=== PATIENT | female | born 1985 | race Caucasian/White ===

== ENCOUNTER 2017-02-27 05:54 | Inpatient (IN) ==
--- NOTE | 2017-02-27 06:35 | OB/GYN History & Physical ---
Date of Encounter: 02/27/17 Assessment and Plan (1) 39 weeks gestation of Current visit: Yes Status: Acute History of Present Illness Chief complaint: Scheduled HPI: Ms. 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 GBS: negative HIV Ag/Ab: non-reactive T. Pallidum: negative Rubella Ab: positive Varicella Ab: positive Blood type: O+ HepBSAb: non-reactive (08/14/16) Past Med Surg Social Fam HX - Past Medical History Medical history: non-contributory - Social History Smoking Status: Never smoker Smokeless Tobacco Status: No Alcohol use: occasionally Obstetrical History - Pregnancies : 2 Para: 1 Term: 1 : 0 Ab's: 0 Livin Medications and Allergies Advil Allergy Sinus Caplet 05/01/16 [History] Calli-[place] Plus Cld-Cough Cp 05/01/16 [History] Amoxicillin/Clavulanate [Augmentin] 875 mg PO BIDWM #20 tablet 05/01/16 [Rx] Humidifier [Cool Mist Humidifier] 1 each MC DAILY #1 each 05/01/16 [Rx] Mucinex 05/01/16 [History] Vicks Dayquil Cough 05/01/16 [History] 3 Allergy/AdvReac Type Severity Reaction Status Date / Time No Known Allergies Allergy Verified 05/01/16 10:19 Results All other labs normal.
[2017-02-27] MEDS ORDERED: Naloxone 0.4 MG/ML INJ IVP PRN (06:36)
[2017-02-27] MEDS ORDERED: Metoclopramide 10 MG/2 ML VIAL IVP PRN ×2 (06:36→12:33)
[2017-02-27] MEDS ORDERED: Famotidine 20 MG/2 ML VIAL IVP PRN (06:36)
[2017-02-27] MEDS ORDERED: Ringers Solution, Lactated 1,000 ML ONE ×2 (06:42→07:08)
[2017-02-27] MEDS ORDERED: Ringers Solution, Lactated 1,000 ML IVC SCH (06:45)
[2017-02-27 07:00] LABS: Basophils % 0.2 %; Eosinophils # 0.1 K/mcL (0.0-0.6); Eosinophils % 0.7 %; Hemoglobin 11.8 g/dL (11.5-15.4); Immature Granulocytes % 0.8 % (0-4); Lymphocytes # 2.1 K/mcL (0.6-4.6); Lymphocytes % 16.9 %; Mean Corpuscular HGB Conc 32.8 g/dL (31.6-35.5); Mean Corpuscular Hemoglobin 27.6 pg (28.0-33.3); Mean Corpuscular Volume 84.1 fL (83.0-100.0); Mean Platelet Volume 10.8 fL (9.4-12.4); Monocytes # 0.7 K/mcL (0.0-1.3); Monocytes % 5.4 %; Neutrophils # 9.3 K/mcL (1.6-8.9); Platelet Count 217 K/mcL (140-400); Red Blood Count 4.28 M/mcL (3.82-4.97)
[2017-02-27] MEDS ORDERED: MetroNIDAZOLE 500 MG/100 ML 500 MG/100 ML BAG IVPB ONE (07:00)
--- NOTE | 2017-02-27 07:00 | Anesthesia Evaluation PreOp ---
Date of Encounter: 02/27/17 Time of Encounter: 06:57 - Past History Planned Operation: repeat , Cardiac History: Denies any Significant Hx Pulmonary History: Denies Any Significant HX VISUAL AND STOCK ASSOCIATE History: Denies Any Significant HX Other Medical History: Denies Any Significant HX Anesthesia History: No Prior Anesthetic Complications, Past Anesthesia Alcohol Use: occasionally Medications and Allergies Advil Allergy Sinus Caplet 05/01/16 [History] Calli-[place] Plus Cld-Cough Cp 05/01/16 [History] Amoxicillin/Clavulanate [Augmentin] 875 mg PO BIDWM #20 tablet 05/01/16 [Rx] Humidifier [Cool Mist Humidifier] 1 each MC DAILY #1 each 05/01/16 [Rx] Mucinex 05/01/16 [History] Vicks Dayquil Cough 05/01/16 [History] 3 Allergy/AdvReac Type Severity Reaction Status Date / Time No Known Allergies Allergy Verified 05/01/16 10:19 Anesthesia Exam - HEENT Pupil (Motor): Pupils equal Mallampati: II Teeth: Normal Oral Opening: Greater than 3 - VISUAL AND STOCK ASSOCIATE LOC: Oriented VISUAL AND STOCK ASSOCIATE Motor: Normal RUE, Normal LUE, Normal RLE, Normal LLE, Normal Face VISUAL AND STOCK ASSOCIATE Sensory: Normal: RUE, LUE, RLE, LLE, Face - Cardiac Rhythm: Regular Murmur: None - Pulmonary Breath Sounds: bilateral Clear Respiratory Effort: Symmetrical Anesthesia Assess/Plan ASA Score: 2 Modified Evangelist Scale for Level of Consciousness: Cooperative, oriented, and tranquil Anesthetic Plan: General, Regional Monitoring Plan: Standard Monitors Recovery Plan: PACU
[2017-02-27] MEDS ORDERED: *HR* Promethazine 25 MG/ML VIAL IVP PRN (07:01)
[2017-02-27] MEDS ORDERED: *HR* HYDROmorphone (PF) 1 MG/ML SYRINGE IVP PRN ×2 (07:01→12:33)
--- NOTE | 2017-02-27 07:02 | History & Physical Report ---
Date of Encounter: 02/27/17 Time of Encounter: 06:59 24 Hour HP Update - Instructions Instructions: If the History and Physical is less than 30 days old and was completed prior to A.M. admission and or procedure and has NOT been updated on calendar day of procedure please complete this update prior to performing procedure. - Update Patient reports changes in Medical Condition: No Changes in examination, assessment, or condition: No Changes in Medication: No Preop tests/diagnostics Reviewed: Yes Surgery Remains Indicated: Yes Consent for Planned Operative Procedure(s) Verified: Yes - Pre-Operative Checklist Preoperative Checklist Indicated: Yes Prophylactic Antibiotic Ordered: Yes Home Medications Include Beta Bettie: No Beta Bettie Taken Today (Day of Surgery): No Beta Bettie Taken Yesterday (Day Prior to Surgery): No Is VTE Prophylaxis Indicated?: Yes
[2017-02-27] MEDS ORDERED: EPHEDrine 50 MG/ML VIAL ONE (07:09)
[2017-02-27] MEDS ORDERED: *HR* Morphine Sulfate/PF 5 MG/10 ML AMPUL ONE (07:09)
[2017-02-27] MEDS ORDERED: *HR* FentaNYL (PF) 100 MCG/2 ML VIAL ONE (07:09)
[2017-02-27] MEDS ORDERED: *HR* Oxytocin 10 UNIT/ML VIAL IM ONE (07:09)
[2017-02-27 08:57] LABS: Amphetamine Screen,Urine Negative ng/mL (Cutoff=1000); Barbiturate Screen,Urine Negative ng/mL (Cutoff=200); Benzodiazepines Screen,Urine Negative ng/mL (Cutoff=200); Cannabinoid Screen,Urine Negative ng/mL (Cutoff = 50); Cocaine Screen,Urine Negative ng/mL (Cutoff= 300); Opiate Screen,Urine Negative ng/mL (Cutoff=300); Phencyclidine Screen,Urine Negative ng/mL (Cutoff=25)
[2017-02-27] MEDS ORDERED: *HR* Midazolam HCl 2 MG/2 ML VIAL ONE (09:07)
[2017-02-27] MEDS ORDERED: Ondansetron 4 MG/2 ML VIAL ONE (09:49)
--- NOTE | 2017-02-27 09:50 | OB/GYN Procedure Note ---
Section - Date of procedure: 02/27/17 Preop diagnosis: desires repeat , desires sterilization Post-op diagnosis: same Procedure: section, repeat low transverse, bilateral tubal ligation Surgeon: Isabella Bush Estimated blood loss (cc): 300 Anesthesiologist: Suzie Isidro Finish Mender: Julio Alfaro Anesthesia Type: Spinal section complications: none Disposition: L&D Recovery Room Specimens: Placenta, Cord segment, Cord blood, Right tube segment, Left tube segment - (s) A Infant Delivery Date: 02/27/17 Infant Delivery Time: 09:02 Presentation: vertex Position: CEZAR Route of delivery: other Gender: Male Viability: Viable Pounds: 7 Ounces: 7 at 1 minute: 8 at 5 minutes: 9 Specimens collected: cord blood Placenta: spontaneous, uterine exploration Cord: nuchal cord, 3 umbilical vessels, nuchal reduced - Narrative Narrative: The patient was taken to the operating room and given spinal anesthesia adequate for abdominal and pelvic surgery. She was prepped and draped in the usual sterile fashion. Timeout was completed. A Pfannenstiel skin incision was made above and below the previous scar. The scar was excised. The subcutaneous tissue was then sharply dissected down to the fascia. The fascia was incised in the midline and extended bilaterally. 2 straight Norman clamps were placed on the inferior fascial edge and the fascia was bluntly and sharply dissected away from the rectus muscles. This was repeated superiorly. The rectus muscles were bluntly bissected. Peritoneum was bluntly entered. There were no adhesions appreciated. The peritoneum was then extended superiorly and inferiorly confirming there were no anterior adhesions to this area. Bladder blade was placed to protect the bladder. Vesicouterine peritoneum was incised and reflected inferiorly and the bladder blade was replaced to protect the bladder. The previous scar was starting to dehisce and there was a 1 cm window to the amnion. The scar then spontaneously in a transverse fashion. This was extended with bandage scissors in a U fashion.. The amnion was bluntly entered and clear fluid noted. This was followed by the vertex delivery of a viable . The infant was placed on the maternal abdomen and bulb suctioned. The cord was clamped and cut after a delay. was handed to the nursery care team. Cord blood was obtained. The placenta was delivered spontaneous and intact. The uterine cavity was digitally palpated and wiped clean with a moist lap sponge. There were no placental remnants identified. A ring forcep is used to dilate the cervix and then discarded off the field. Clamps were placed on the uterine angles and the uterine incision was closed using 0 Vicryl suture in a running, locking fashion. A second imbricating layer completed the uterine closure with 0 Vicryl suture. Good hemostasis was achieved. Attention was then placed on the fallopian tubes. The tubes and ovaries appeared grossly normal bilaterally with no tubo-ovarian adhesions noted bilaterally. The left fallopian tube was grasped with a Donavon clamp and O-plain suture was used to doubly ligate a proximal loop of tube. The loop of tube was then excised and sent to pathology. Good hemostasis was noted in the tubal lumens. This was repeated for the patient's right side. Again good hemostasis noted in the tubal lumens. The uterus was then examined and noted to be hemostatic. The pelvis was then irrigated with a copious amount of sterile water. Again good hemostasis was identified. The peritoneal edges and rectus muscles were then examined and hemostasis achieved. The fascia was then closed using an 0 PDS loop in a running nonlocking fashion. Subcutaneous tissue was irrigated with sterile water, good hemostasis was achieved. The skin was then closed using and 4-0 Monocryl in a running subcuticular fashion. The incision was then reinforced with benzoin and Steri- Strips. Good hemostasis was noted. The Antony was noted to be draining clear yellow urine at the end of the procedure. All sponge and instrument counts are correct at the end of the procedure. The patient was taken to the recovery room in stable condition.
[2017-02-27] MEDS ORDERED: *HR* Promethazine 25 MG/ML VIAL ONE (10:07)
[2017-02-27] MEDS ORDERED: Oxytocin 20 units/ LR 1000 mL 20 UNIT/1,000 ML BAG IVC ONE (10:27)
--- NOTE | 2017-02-27 10:51 | Anesthesia Evaluation Post Op ---
Date of Encounter: 02/27/17 Time of Encounter: 10:52 - Vital Signs Vital Signs: vss - Lungs Lungs: Clear Ascult./Percussion - Airway Airway: Non-obstructed - Cardiovascular Baseline Rhythm - Mental Status Mental Status: Alert & Oriented, Answers Appropriately - Pain Pain Scale used: Ruben (Faces) - Nausea Vomiting Nausea Vomiting: Not Present - Hydration Hydration: Ice chips - Discharge PostOp Status: Transfer Patient to floor
[2017-02-27] MEDS ORDERED: Acetaminophen 325 MG TABLET PO PRN (12:33)
[2017-02-27] MEDS ORDERED: Ondansetron 4 MG/2 ML VIAL IVP PRN (12:33)
[2017-02-27] MEDS ORDERED: Rho Immune Globulin 1,500 UNIT SYRINGE IM ONE (12:33)
[2017-02-27] MEDS ORDERED: Simethicone 80 MG TAB.CHEW PO PRN (12:33)
[2017-02-27] MEDS ORDERED: *HR* Morphine 2 MG/ML SYRINGE IVP PRN (12:33)
[2017-02-27] MEDS ORDERED: Sennosides 8.6 MG TABLET PO PRN (12:33)
[2017-02-27] MEDS: *HR* OxyCODONE/APAP 5/325 TABLET PO PRN ×3 (13:04→22:06)
[2017-02-27] MEDS: Ibuprofen 600 MG TABLET PO SCH ×2 (15:25→21:07)
[2017-02-27] MEDS: Oxytocin 20 units/ LR 1000 mL 20 UNIT/1,000 ML BAG IVC SCH ×2 (15:56→23:47)
[2017-02-27] MEDS ORDERED: Lidocaine -MPF 2% 5 ML VIAL ONE (20:06)
[2017-02-28] MEDS: *HR* OxyCODONE/APAP 5/325 TABLET PO PRN ×4 (03:26→19:26)
[2017-02-28] MEDS: Ibuprofen 600 MG TABLET PO SCH ×3 (05:41→17:43)
[2017-02-28 06:15] LABS: Basophils % 0.3 %; Eosinophils # 0.2 K/mcL (0.0-0.6); Eosinophils % 1.2 %; Hematocrit 32.4 % (35.3-44.9); Hemoglobin 10.5 g/dL (11.5-15.4); Immature Granulocytes % 0.6 % (0-4); Lymphocytes % 13.8 %; Mean Corpuscular HGB Conc 32.4 g/dL (31.6-35.5); Mean Corpuscular Hemoglobin 27.9 pg (28.0-33.3); Mean Corpuscular Volume 85.9 fL (83.0-100.0); Mean Platelet Volume 10.5 fL (9.4-12.4); Monocytes # 0.7 K/mcL (0.0-1.3); Monocytes % 5.1 %; Neutrophils # 11.3 K/mcL (1.6-8.9); Platelet Count 195 K/mcL (140-400); Red Blood Count 3.77 M/mcL (3.82-4.97)
[2017-02-28] MEDS: Prenatal Vit/FA 1 EACH TABLET PO SCH (08:25)
--- NOTE | 2017-02-28 09:21 | OB/GYN Progress Note ---
Date of Encounter: 02/28/17 Time of Encounter: 09:19 - Assessment and Plan (1) Status post section Current Visit: Yes Status: Acute Meeting all POD #1 milestones. , pain well managed Continue current care Discharge tomorrow. (2) anemia Current Visit: Yes Status: Acute on iron supplementation Subjective - Subjective Patient reports: appetite normal, voiding normally, pain well controlled, ambulating normally [place]: doing well, nursing well Objective - Vital Signs Latest vital signs: Vital Signs Temp Pulse Resp BP Pulse Ox 02/28/17 08:47 98.4 F 91 14 102/68 97 02/28/17 03:25 98.1 F 102 14 98/65 98 02/27/17 23:11 98.1 F 98 18 98/63 97 02/27/17 20:50 98.1 F 98 16 114/75 97 02/27/17 15:15 97.7 F 98 16 121/79 98 02/27/17 13:50 98.2 F 98 16 129/70 97 02/27/17 13:04 97.8 F 89 16 110/75 98 02/27/17 12:35 97.6 F 76 14 118/77 98 02/27/17 12:00 97.2 F L 72 12 118/77 100 Intake and Output 02/27/17 02/28/17 02/28/17 23:59 07:59 15:59 Intake Total 1840 / 1840 240 / 240 Output Total 800 / 800 900 / 900 600 / 600 Balance 1040 / 1040 -900 / -900 -360 / -360 Intake: IV Fluids 1000 / 1000 Pitocin 20 unit In 1,000 ml @ 1000 / 1000 125 mls/hr IVC .Q8H [facility] Rx#: [id number] Oral 840 / 840 240 / 240 Output: Urine 800 / 800 900 / 900 600 / 600 Urethral (Antony) 800 / 800 900 / 900 Other: Meal Dinner Breakfast Percent of Meal Consumed 100% 100% - Exam Lungs: bilateral: normal Chest: Normal S1, Normal S2 Extremities: Present: normal Abdomen: Present: normal appearance, soft Incision: Present: dry, dressed Uterus: Present: firm Comments: At U - Labs Labs: Laboratory Results - last 24 hr 02/28/17 05:44 WBC 14.3 H RBC 3.77 L Hgb 10.5 L Hct 32.4 L MCV 85.9 MCH 27.9 L MCHC 32.4 RDW 13.0 Plt Count 195 MPV 10.5 Immature Gran % 0.6 Seg Neutrophils % 79.0 Lymphocytes % 13.8 Monocytes % 5.1 Eosinophils % 1.2 Basophils % 0.3 Neutrophils # 11.3 H Lymphocytes # 2.0 Monocytes # 0.7 Eosinophils # 0.2 Basophils # 0.0
[2017-03-01] MEDS: Ibuprofen 600 MG TABLET PO SCH ×2 (00:06→06:26)
[2017-03-01] MEDS: *HR* OxyCODONE/APAP 5/325 TABLET PO PRN ×3 (00:07→10:11)
[2017-03-01] MEDS: Prenatal Vit/FA 1 EACH TABLET PO SCH (08:25)
--- NOTE | 2017-03-01 09:29 | Discharge Summary ---
Date of Encounter: 03/01/17 Time of Encounter: 09:24 - Discharge Diagnosis (1) Status post repeat low transverse section Priority: Primary Status: Acute Comments: Continue post op/ care Discharge home today (2) Breast feeding status of mother Priority: Secondary Status: Acute Comments: support prn - Discharge Medications Prescriptions: OxyCODONE/APAP 5/325 [Percocet 5/325 MG] 1 each PO Q4HR PRN #30 tablet PRN Reason: Moderate pain 4-6 Ibuprofen [Motrin] 600 mg PO Q6HR #60 tablet Home Medications: Ibuprofen [Motrin] 600 mg PO Q6HR #60 tablet 03/01/17 [Rx] OxyCODONE/APAP 5/325 [Percocet 5/325 MG] 1 each PO Q4HR PRN #30 tablet 03/01/17 [Rx] Vit/FA 1 each PO DAILY tablet 03/01/17 [Rx] Sertraline [Zoloft] 25 mg PO DAILY tablet 03/01/17 [Rx] Allergies/Adverse Reactions: 3 Allergy/AdvReac Type Severity Reaction Status Date / Time No Known Allergies Allergy Verified 05/01/16 10:19 Data Procedures and tests throughout hospitalization: Laboratory Tests 02/27/17 02/27/17 02/28/17 06:40 06:40 05:44 WBC 12.3 H 14.3 H RBC 4.28 3.77 L Hgb 11.8 10.5 L Hct 36.0 32.4 L MCV 84.1 85.9 MCH 27.6 L 27.9 L MCHC 32.8 32.4 RDW 13.0 13.0 Plt Count 217 195 MPV 10.8 10.5 Immature Gran % 0.8 0.6 Seg Neutrophils % 76.0 79.0 Lymphocytes % 16.9 13.8 Monocytes % 5.4 5.1 Eosinophils % 0.7 1.2 Basophils % 0.2 0.3 Neutrophils # 9.3 H 11.3 H Lymphocytes # 2.1 2.0 Monocytes # 0.7 0.7 Eosinophils # 0.1 0.2 Basophils # 0.0 0.0 Urine Opiates Screen Negative Ur Barbiturates Screen Negative Ur Phencyclidine Scrn Negative Ur Amphetamines Screen Negative U Benzodiazepines Scrn Negative Urine Cocaine Screen Negative U Marijuana (THC) Screen Negative Date of admission: 02/27/17 05:54 Primary care physician: Светлана Robbins CNP Discharging clinician: Shannon Blankenship Anticipated date of discharge: 03/01/17 - Patient Status Disposition: Home, Self-Care Condition: Good Functional capacity at discharge: independent ambulation - Discharge Instructions Follow Up With: Светлана Robbins CNP [Primary Care Provider] - Isabella Bush MD [Partnered Physician] - - Diet and Activity Activity: resume usual activities as tolerated Diet: regular diet Hospital Course Procedures: [facility] report reviewed by Tova Blankenship CNM Reason for admission: section Delivery: section Other procedures: tubal ligation Discharge diagnosis: IUP at term delivered [place] baby: male Time Attestation: Total time spent providing and/or coordinating discharge services: Time Spent: Less than 30 minutes - VTE Reasons for not Prescribing Prophylaxis: Treatment not Indicated - Low risk for VTE Documentation of Mechanical Device: Intermittent pneumatic compression device Exam - Constitutional Vitals: Temp Pulse Resp BP Pulse Ox 98.0 F 96 14 113/96 98 02/28/17 19:25 02/28/17 19:25 02/28/17 19:25 02/28/17 19:25 02/28/17 19:25 General appearance IM: A&O X 3, no acute distress, answers questions appropriately - Respiratory Respiratory exam: Present: CTAB - Cardiovascular Cardiovascular exam IM: Present: RRR, +S1, +S2 - GI/Abdominal GI/Abdominal exam IM: normal bowel sounds Incision: normal, intact, dressed (steri strips) - Rectal Rectal exam: deferred - Uterine Tone: Firm Uterus Position: 2 Fingers Above Umbilicus, 2 Fingers Below Umbilicus - Extremities Exam Extremities exam IM: Present: normal capillary refill, normal inspection - Neurological Exam Neurological exam: alert, oriented X3, reflexes normal, strengths equal and symetr throughout
[2017-03-01 10:06] VITALS: BP 104/70
== END 2017-03-01 12:55 | disposition home or self-care (01) | DRG 766 ==
LOC: 1NENULAB 05:54 → EDSTATUS 07:45 → 1NENUOBS 12:00
PROVIDERS: ADMIT Obstetrics & Gynecology; ATTEND Obstetrics & Gynecology